=== PATIENT | female | born 1990 | race Caucasian/White ===

== ENCOUNTER 2016-11-27 20:14 | Emergency (ER) | payer OTHER ==
[~2016-11-27] VITALS: Ht 149.9 cm; Wt 60.3 kg
[2016-11-27 20:53] LABS: URINE BILIRUBIN NEGATIVE (Negative); URINE BLOOD TRACE (Negative); URINE COLOR YELLOW; URINE GLUCOSE-RANDOM* NEGATIVE (Negative); URINE KETONES NEGATIVE (Negative); URINE NITRITE NEGATIVE (Negative); URINE PROTEIN (DIPSTICK) NEGATIVE (Negative); URINE UROBILINOGEN 0.2 E.U./dl (0.2-1.0)
[2016-11-27] MEDS ORDERED: IBUPROFEN 600600 M1 PO (20:53)
[2016-11-27] MEDS ORDERED: TIZANIDINE HCL4 MG PO (20:53)
[2016-11-27 21:35] VITALS: BP 105/66
== END 2016-11-27 21:36 | disposition home or self-care (01) ==
LOC: ER 20:14
PROVIDERS: Nurse Practitioner
DX: S39.012A Strain of muscle, fascia and tendon of lower back, initial encounter (principal); M41.9 Scoliosis, unspecified; F84.0 Autistic disorder; V43.62XA Car passenger injured in collision with other type car in traffic accident, initial encounter; Y93.89 Activity, other specified; Y92.488 Other paved roadways as the place of occurrence of the external cause; Y99.8 Other external cause status

== ENCOUNTER 2018-02-16 18:17 | Emergency (ER) | payer OTHER ==
[~2018-02-16] VITALS: Ht 149.9 cm; Wt 65.8 kg
[~2018-02-16 18:17] MED LIST: IBUPROFEN 600600 M1 PO; TIZANIDINE HCL4 MG PO
[2018-02-16 18:43] LABS: URINE BILIRUBIN NEGATIVE (Negative); URINE BLOOD 1+ (Negative); URINE CLARITY CLEAR; URINE COLOR YELLOW; URINE GLUCOSE-RANDOM* NEGATIVE (Negative); URINE KETONES NEGATIVE (Negative); URINE LEUKOCYTES 1+ (Negative); URINE NITRITE NEGATIVE (Negative); URINE PROTEIN (DIPSTICK) NEGATIVE (Negative); URINE UROBILINOGEN 0.2 E.U./dl (0.2-1.0)
[2018-02-16 18:55] LABS: ABSOLUTE NEUTROPHILS 12.1 thou/uL (1.4-8.2); BASOPHILS 0.2 % (0.0-2.0); EOSINOPHILS 0.9 % (0.0-3.0); HEMOGLOBIN 14.2 gm/dL (12.0-15.0); LYMPHOCYTES 11.8 % (24.0-44.0); MCH 29.2 pg (26.0-34.0); MCHC 34.5 g/dL (28.0-37.0); MCV 84.5 fL (80.0-100.0); MONOCYTES 4.8 % (1.0-8.0); PLATELET COUNT 316 thou/uL (150-400); POLYS 82.3 % (36.0-66.0); RBC 4.86 mil/uL (4.20-5.00); RDW 13.7 % (10.5-14.5); WBC 14.7 thou/uL (4.0-11.0)
[2018-02-16 19:03] LABS: CALCIUM 8.7 mg/dL (8.5-10.1); CREATININE 0.6 mg/dL (0.6-1.0); POTASSIUM 3.8 mmol/L (3.5-5.1)
[2018-02-16 19:09] LABS: ALBUMIN 3.5 g/dL (3.4-5.0); TOTAL BILIRUBIN 0.2 mg/dL (<0.1-1.0)
[2018-02-16 19:14] LABS: BACTERIA >30 Many /HPF (None Seen); CASTS None Seen /LPF (None Seen); CRYSTALS None Seen /LPF (None Seen); SQUAMOUS 4-10 Moderate /LPF (0-3); URINE WBC 0-5 Rare /HPF (0-5)
[2018-02-16] MEDS ORDERED: ONDANSETRON HCL4 M2 PO (21:37)
[2018-02-16] MEDS ORDERED: MIRALAX17 GM PO (21:37)
[2018-02-16 22:20] VITALS: BP 120/80
== END 2018-02-16 22:20 | disposition home or self-care (01) ==
LOC: ER 18:17
PROVIDERS: Student in an Organized Health Care Education/Training Program
DX: R11.2 Nausea with vomiting, unspecified (principal); Q87.1 Congenital malformation syndromes predominantly associated with short stature